=== PATIENT | female | born 1960 | race American Indian/Alaskan Native ===

== ENCOUNTER 2016-12-23 07:50 | Day surgery (SDC) | payer MEDICAID ==
[2016-12-19 10:12] VITALS: BMI 33.6
[2016-12-23] MEDS ORDERED: Propofol 10 mg/ml Inj (20 ML) ONE (09:32)
[2016-12-23] MEDS ORDERED: Midazolam 2 MG/2 ML VIAL ONE (09:32)
[2016-12-23] MEDS ORDERED: ceFAZolin IV 1 gm in Dextrose 50 ML IVPB ONE (09:37)
[2016-12-23] MEDS ORDERED: Lidocaine 1% Inj (20ml) ONE (09:37)
[2016-12-23] MEDS ORDERED: Bupivacaine HCl 0.25% PF (10 ml) Inj ONE (09:37)
[2016-12-23] MEDS ORDERED: HYDROmorphone 0.5 mg/0.5 ml ISec IVP PRN (10:07)
[2016-12-23] MEDS ORDERED: Lactated Ringer's 1,000 ML IV SCH (10:15)
[2016-12-23 10:24] VITALS: O2SAT 100
[2016-12-23] MEDS ORDERED: Oxycodone/Acetaminophen 5/325 mg Tab PO PRN (10:27)
--- NOTE | 2016-12-23 10:35 | OP ---
PROCEDURE DATE: 12/23/2016 PREOPERATIVE DIAGNOSIS: Breast cancer. POSTOPERATIVE DIAGNOSIS: Breast cancer. PROCEDURE PERFORMED: Removal of Port-A-Cath. SURGEON: Tom Cotto MD. ANESTHESIA: General. ESTIMATED BLOOD LOSS: 20 mL. POSTOPERATIVE CONDITION: Stable. INDICATIONS FOR SURGERY: This is a 56-year-old female who is 7 years' status post a left mastectomy for breast cancer. She has done well postoperatively, and now presents for removal of her right ches t wall indwelling Port-A-Cath. PROCEDURE: The patient is taken to the operating room and placed in supine position. The right ches t was prepped and draped, and local anesthesia was infiltrated. An elliptical incision was made over the Port-A-Cath. It was dissected free and removed. Bleeding was controlled using the Bovie. A ch est wall blood vessel was repaired. Wound was irrigated with saline. Generous tissue flaps were hernandez sed using the Bovie, and adjacent tissue transfer closure was performed in multiple layers of subcuti cular Monocryl and glue. The patient tolerated the procedure well and returned to the recovery room in stable condition. Tom Cotto MD cc: [id number] TT: 12/23/2016 10:34:22 jn
[2016-12-23 11:19] VITALS: BP 129/70; PULSE 60; RESP 18; TEMP 96.7
== END 2016-12-23 12:28 | disposition home or self-care (01) ==
LOC: C.SDS 07:50
PROVIDERS: ATTEND Surgery
DX: Z45.2 Encounter for adjustment and management of vascular access device (principal); Z85.3 Personal history of malignant neoplasm of breast; Z90.12 Acquired absence of left breast and nipple; Z92.21 Personal history of antineoplastic chemotherapy; I45.19 Other right bundle-branch block; Z98.890 Other specified postprocedural states; Z90.49 Acquired absence of other specified parts of digestive tract; Z79.82 Long term (current) use of aspirin; Z79.899 Other long term (current) drug therapy
CPT/HCPCS: 36590; 88300; J0690; J2250; J2704; J3010